=== PATIENT | female | born 1955 | race Caucasian/White ===

== ENCOUNTER 2024-06-04 12:17 | Emergency (ER) | payer MEDICARE, SELFPAY ==
[2024-06-04 12:17] VITALS: BP 132/74; PULSE 97; RESP 16; TEMP 36.6; O2SAT 100; BMI 22.7
[2024-06-04 14:17] VITALS: BP 109/59
[2024-06-04 14:32] VITALS: BP 109/59; PULSE 97; RESP 16; TEMP 36.6; O2SAT 100
== END 2024-06-04 14:44 | disposition home or self-care (01) ==
PROVIDERS: Emergency Provider Emergency Medicine; Visit Provider Emergency Medicine
DX: S22.41XA Multiple fractures of ribs, right side, initial encounter for closed fracture (principal); S16.1XXA Strain of muscle, fascia and tendon at neck level, initial encounter; S00.03XA Contusion of scalp, initial encounter; S80.211A Abrasion, right knee, initial encounter; M50.30 Other cervical disc degeneration, unspecified cervical region; W19.XXXA Unspecified fall, initial encounter; Y93.K1 Activity, walking an animal
CPT/HCPCS: 70450; 71250; 72125; 99282